=== PATIENT | female | born 1975 | race Caucasian/White ===

== ENCOUNTER → 2016-12-16 | Outpatient (CLI) | payer OTHER ==
[~2016-12-16] MED LIST: LEVO150T48 PO; MTR600X PO; PRENTAB26 PO
--- NOTE | 2016-12-16 15:16 | MAMMOGRAPHY REPORT ---
BILATERAL DIGITAL SCREENING MAMMOGRAM TOMOSYNTHESIS WITH CAD: 12/16/2016 CLINICAL HISTORY: Routine screening. TECHNIQUE: Breast tomosynthesis in addition to standard 2D mammography was performed. Current study was also evaluated with a Computer Aided Detection (CAD) system. COMPARISON: Comparison is made to exams dated: 07/12/2013 ultrasound, 04/09/2011 mammogram, 08/06/2010 mammogram - [facility], 01/02/2009 mammogram - [facility], 09/28/2007, and 011 ultrasound - [facility]. BREAST COMPOSITION: The tissue of both breasts is heterogeneously dense, which may obscure small mas ses. There have been significant involutional changes compared to prior mammograms. FINDINGS: There is a 9 mm asymmetry in the far superior left breast, only seen on the MLO view which could represent normal overlapping nodular tissue. However, additional spot compression tomosynthes is views and possible ultrasound are recommended. Another asymmetry seen in the medial, middle to po sterior left breast on the CC view could represent normal overlapping tissue. However, additional sp ot compression tomosynthesis views and possible ultrasound are recommended. Linear scar markers overlie each breast. No other suspicious mass, architectural distortion or clust er of microcalcifications is seen. IMPRESSION: ACR BI-RADS CATEGORY 0: INCOMPLETE EVALUATION: NEED ADDITIONAL IMAGING EVALUATION The asymmetries in the superior and medial left breast need additional imaging evaluation. The patient will be called to schedule an appointment. Approximately 10% of breast cancers are not detected with mammography. A negative mammographic report should not delay biopsy if a clinically suggestive mass is present. Chela Obrien M.D. ay/:12/16/2016 13:00:37 Bobbin Drier: Donte LEE(R)(M), [facility] letter sent: Addl Imaging 0 BI-RADS Code: ACR BI-RADS Category 0: Incomplete Evaluation: Need Additional Imaging Evaluation
== END | disposition home or self-care (01) ==
LOC: C.MAMM 12:26
PROVIDERS: ATTEND Obstetrics & Gynecology
DX: Z12.31 Encounter for screening mammogram for malignant neoplasm of breast (principal); N64.89 Other specified disorders of breast

== ENCOUNTER → 2016-12-23 | Outpatient (CLI) | payer OTHER ==
--- NOTE | 2016-12-23 15:30 | MAMMOGRAPHY REPORT ---
UNILATERAL LEFT DIGITAL DIAGNOSTIC MAMMOGRAM TOMOSYNTHESIS AND TARGETED LEFT ULTRASOUND: 12/23/2016 CLINICAL HISTORY: 41-year-old woman called back from screening mammography for left breast asymmetrie s. Family history of breast cancer = mother in her early 40s, maternal grandmother and paternal gran dmother. TECHNIQUE: Spot compression left CC and MLO tomosynthesis images and reconstructed CC view were obta ined. COMPARISON: Comparison is made to exams dated: 12/16/2016 mammogram, 07/12/2013 ultrasound, 12/12/2012 ultrasound, 04/09/2011 mammogram, 08/06/2010 ultrasound, and 08/06/2010 mammogram - [facility]. BREAST COMPOSITION: The tissue of the left breast is heterogeneously dense, which may obscure small masses. FINDINGS: On the supplemental spot compression tomosynthesis views, there is partial effacement of th e asymmetry seen in the medial and superior breast, that currently have the appearance of normal fibr oglandular tissue. There is no focal area of architectural distortion, obvious mass or suspicious mi crocalcification. Further evaluation with ultrasound was performed. Real-time high-resolution ultrasound was performed throughout the left breast. Sonographically caryl l tissue is seen without a discrete solid or cystic mass. IMPRESSION: ACR-BI-RADS CATEGORY 3: PROBABLY BENIGN, TARGETED ULTRASOUND ACR-BI-RADS CATEGORY 3: PRO BABLY BENIGN 1. Partial effacement of the left medial and superior asymmetries, which most likely represent caryl l overlapping glandular tissue, and no suspicious sonographic correlate identified in the left breast . These asymmetries are slightly more prominent compared to prior mammograms, but there have also be en involutional changes. Although they are probably benign, a short interval follow-up left diagnost ic tomosynthesis mammogram and possible ultrasound is recommended to ensure stability in 6 months. 2. We also discussed the possibility of additional screening with breast MRI the patient's lifetime risk for developing breast cancer is at least 20%. We discussed the Itzel and NA II risk models to try to estimate the patient's risk. These results and recommendations were discussed with the patient and her at the time of the exam. Approximately 10% of breast cancers are not detected with mammography. A negative mammographic report should not delay biopsy if a clinically suggestive mass is present. Chela Obrien M.D. ay/:12/23/2016 10:05:57 Human Relations Teacher: Sara Chambers, [facility] letter sent: Follow Up Recommended 3 BI-RADS Code: ACR-BI-RADS Category 3: Probably Benign Ultrasound BI-RADS: ACR-BI-RADS Category 3: Pr obably Benign
== END | disposition home or self-care (01) ==
LOC: C.MAMM 09:29
PROVIDERS: ATTEND Obstetrics & Gynecology
DX: N64.89 Other specified disorders of breast (principal)

== ENCOUNTER → 2017-01-14 | Outpatient (CLI) | payer OTHER ==
[~2017-01-14] MED LIST changes: +GADAVIST IV PRN; +LIDOCAINE HCL 2% 2 ML VIAL (20MG/ML) ONE; +MIDAZOLAM HCL 1 MG/ML 2ML VIAL ONE; +ONDANSETRON INJ 2 MG/ML 2 ML VIAL ONE; +PROPOFOL IV EMULSION 10 MG/ML 20 ML VIAL IV ONE
--- NOTE | 2017-01-15 13:42 | MAMMOGRAPHY REPORT ---
BREAST MRI OF BOTH BREASTS : 01/14/2017 CLINICAL HISTORY: Screening breast MRI. Strong family history of breast cancer. COMPARISON: Comparison is made to exams dated: 12/23/2016 mammogram, 12/16/2016 mammogram, 07/12/2013 u ltrasound, 12/12/2012 ultrasound, and 04/09/2011 mammogram - [facility]. Technique: The patient was placed prone in a dedicated breast imaging coil. Precontrast axial T1-amarilys ghted, axial T2-weighted fat saturation, and axial T1-weighted fat saturation images were obtained. After the administration of 5.5 mL of Gadavist IV contrast, sequential T1-weighted fat saturation indira ges were obtained. Subtraction images were obtained of the dynamic contrast enhanced sequences, and 3-D reformations were performed. The [employer] software was used for kinetic analysis. Findings: Review of the images shows no contrast within the heart or aorta and no contrast within vessels in th e breast. Therefore, the contrast bolus was suboptimal, possibly due to extravasation or other issue with the injection, and the images are therefore nondiagnostic. The patient needs to return for rep eat imaging. IMPRESSION: ACR BI-RADS CATEGORY 0: INCOMPLETE EVALUATION: NEED ADDITIONAL IMAGING EVALUATION Nondiagnostic exam as described above. Therefore, the patient needs to return for a repeat MRI exam at no additional charge. The patient will be called to schedule a follow-up appointment. Susana Kuhn M.D. /:01/14/2017 17:09:17 Urban Anthropologist: department operations manager, [facility] letter sent: Addl Imaging 0 BI-RADS Code: ACR BI-RADS Category 0: Incomplete Evaluation: Need Additional Imaging Evaluation
== END | disposition home or self-care (01) ==
LOC: C.MRI 10:46
PROVIDERS: ATTEND Obstetrics & Gynecology
DX: R92.2 Inconclusive mammogram (principal)

== ENCOUNTER → 2017-04-30 | Outpatient (CLI) | payer OTHER ==
[~2017-04-30] MED LIST changes: -GADAVIST IV PRN; -LIDOCAINE HCL 2% 2 ML VIAL (20MG/ML) ONE; -MIDAZOLAM HCL 1 MG/ML 2ML VIAL ONE; -ONDANSETRON INJ 2 MG/ML 2 ML VIAL ONE; -PROPOFOL IV EMULSION 10 MG/ML 20 ML VIAL IV ONE
--- NOTE | 2017-04-30 16:58 | DIAGNOSTIC IMAGING REPORT ---
ULTRASOUND LEFT LOWER EXTREMITY VENOUS CLINICAL HISTORY: Left leg phlebitis. COMPARISON STUDY: No priors. TECHNIQUE: Real-time, grayscale, and color Doppler sonography of the deep veins of the left lower extremity was performed from the inguinal crease to the calf. Compression and augmentation were utilized. FINDINGS: There is no sonographic evidence of deep venous thrombosis identified in the left lower extremity. The common femoral, superficial femoral, and popliteal veins are patent and normally compressible. The greater saphenous vein and the profunda femoris vein at the junction with the common femoral vein are clear. The visualized calf veins are patent. IMPRESSION: There is no sonographic evidence of deep venous thrombosis identified in the left lower extremity. Electronically signed by: Bahman Mosley M.D. 04/30/2017 4:57 PM Dictated Date/Time: 04/30/2017 4:56 PM
== END | disposition home or self-care (01) ==
LOC: C.ULTR 16:26
PROVIDERS: ATTEND Family Medicine
DX: I80.02 Phlebitis and thrombophlebitis of superficial vessels of left lower extremity (principal)